=== PATIENT | female | born 1985 | race African-American/Black ===

== ENCOUNTER 2018-05-09 03:55 | Emergency (ER) | payer MEDICAID ==
[~2018-05-09] VITALS: Ht 170.2 cm; Wt 58.8 kg
[2018-05-09] MEDS ORDERED: IBUPROFEN 600MG TABLET PO ONE (06:45)
[2018-05-09 08:44] VITALS: BP 124/86
== END 2018-05-09 08:48 | disposition home or self-care (01) ==
LOC: ER 03:55
DX: S62.604A Fracture of unspecified phalanx of right ring finger, initial encounter for closed fracture (principal); S62.606A Fracture of unspecified phalanx of right little finger, initial encounter for closed fracture; F17.200 Nicotine dependence, unspecified, uncomplicated; F12.10 Cannabis abuse, uncomplicated; W22.8XXA Striking against or struck by other objects, initial encounter; Y93.89 Activity, other specified; Y92.89 Other specified places as the place of occurrence of the external cause; Y99.8 Other external cause status; Z98.890 Other specified postprocedural states; Z88.9 Allergy status to unspecified drugs, medicaments and biological substances; Z88.8 Allergy status to other drugs, medicaments and biological substances
CPT/HCPCS: 29125; 73130; 81025; 99283